=== PATIENT | female | born 1945 | race Caucasian/White ===

== ENCOUNTER → 2018-09-22 | Outpatient (CLI) | payer MEDICARE | END | disposition home or self-care (01) | LOC: RESCLI 10:19 | DX: E55.9 Vitamin D deficiency, unspecified (principal); E11.65 Type 2 diabetes mellitus with hyperglycemia; J30.2 Other seasonal allergic rhinitis; I25.10 Atherosclerotic heart disease of native coronary artery without angina pectoris; E03.9 Hypothyroidism, unspecified; E53.8 Deficiency of other specified B group vitamins; E78.5 Hyperlipidemia, unspecified; I10 Essential (primary) hypertension; Z79.4 Long term (current) use of insulin ==

== ENCOUNTER → 2019-01-07 | Outpatient (CLI) | payer MEDICARE | END | disposition home or self-care (01) | LOC: RESCLI 02:23 | DX: E55.9 Vitamin D deficiency, unspecified (principal); J30.2 Other seasonal allergic rhinitis; I25.10 Atherosclerotic heart disease of native coronary artery without angina pectoris; E03.9 Hypothyroidism, unspecified; E78.5 Hyperlipidemia, unspecified; I10 Essential (primary) hypertension; E11.65 Type 2 diabetes mellitus with hyperglycemia; E53.8 Deficiency of other specified B group vitamins; B35.9 Dermatophytosis, unspecified; Z79.899 Other long term (current) drug therapy; Z88.8 Allergy status to other drugs, medicaments and biological substances ==

== ENCOUNTER → 2019-02-09 | Outpatient (CLI) | payer MEDICARE ==
[2019-02-09 10:30] LABS: BASO # 0.1 10*3/uL (0.0-0.1); BASO % 0.7 % (0.0-1.0); EOS # 0.1 10*3/uL (0.0-0.4); EOS % 1.7 % (1.0-4.0); HEMATOCRIT 33.1 % (37.0-47.0); HEMOGLOBIN 11.2 g/dl (12.0-16.0); LYMPH # 2.7 10*3/uL (1.3-4.4); LYMPH % 31.7 % (27.0-41.0); MEAN CELL VOLUME 98.8 fl (81.0-99.0); MEAN CORPUSCULAR HGB 33.4 pg (27.0-31.0); MEAN CORPUSCULAR HGB CONC 33.8 g/dl (33.0-37.0); MEAN PLATELET VOLUME 9.3 fl (9.6-12.3); MONO # 0.4 10*3/uL (0.1-1.0); MONO % 5.1 % (3.0-9.0); NEUT # 5.1 10*3/uL (2.3-7.9); NEUT % 60.4 % (47.0-73.0); PLATELET COUNT AUTOMATED 213 10*3/uL (130-400); RED BLOOD COUNT 3.35 10*6/uL (4.10-5.10); RED CELL DISTRI WIDTH 12.3 % (0-14.5); WHITE BLOOD COUNT 8.4 10*3/uL (4.8-10.8)
[2019-02-09 11:39] LABS: VITAMIN D, 25-HYDROXY 24.5 ng/mL (30-100)
== END | disposition home or self-care (01) ==
LOC: RESCLI 02:16
PROVIDERS: Internal Medicine
DX: E55.9 Vitamin D deficiency, unspecified (principal); J30.2 Other seasonal allergic rhinitis; I25.10 Atherosclerotic heart disease of native coronary artery without angina pectoris; E03.9 Hypothyroidism, unspecified; E78.5 Hyperlipidemia, unspecified; I10 Essential (primary) hypertension; E11.65 Type 2 diabetes mellitus with hyperglycemia; E53.8 Deficiency of other specified B group vitamins; B35.9 Dermatophytosis, unspecified; Z79.899 Other long term (current) drug therapy; Z88.8 Allergy status to other drugs, medicaments and biological substances

== ENCOUNTER → 2020-05-14 | Outpatient (CLI) | payer MEDICARE | END | disposition home or self-care (01) | LOC: RESCLI 09:03 | PROVIDERS: ATTEND Internal Medicine Nephrology | DX: E11.65 Type 2 diabetes mellitus with hyperglycemia (principal); E55.9 Vitamin D deficiency, unspecified; I25.10 Atherosclerotic heart disease of native coronary artery without angina pectoris; E03.9 Hypothyroidism, unspecified; E78.5 Hyperlipidemia, unspecified; I10 Essential (primary) hypertension; E53.8 Deficiency of other specified B group vitamins; J30.2 Other seasonal allergic rhinitis; Z79.899 Other long term (current) drug therapy ==

== ENCOUNTER → 2020-07-26 | Outpatient (CLI) | payer MEDICARE ==
[2020-07-26 14:41] LABS: BASO % 0.4 % (0.0-1.0); EOS # 0.2 10*3/uL (0.0-0.4); EOS % 1.7 % (1.0-4.0); HEMATOCRIT 32.5 % (37.0-47.0); LYMPH # 2.4 10*3/uL (1.3-4.4); LYMPH % 24.5 % (27.0-41.0); MEAN CORPUSCULAR HGB 31.6 pg (27.0-31.0); MEAN CORPUSCULAR HGB CONC 33.2 g/dl (33.0-37.0); MEAN PLATELET VOLUME 9.1 fl (9.6-12.3); MONO # 0.7 10*3/uL (0.1-1.0); MONO % 7.4 % (3.0-9.0); NEUT # 6.3 10*3/uL (2.3-7.9); NEUT % 65.7 % (47.0-73.0); PLATELET COUNT AUTOMATED 217 10*3/uL (130-400); RED BLOOD COUNT 3.42 10*6/uL (4.10-5.10); RED CELL DISTRI WIDTH 12.4 % (0-14.5); WHITE BLOOD COUNT 9.6 10*3/uL (4.8-10.8)
[2020-07-26 14:53] LABS: ALBUMIN 3.5 gm/dl (3.1-4.5); CREATININE 1.56 mg/dL (0.55-1.02); POTASSIUM 4.4 mmol/L (3.5-5.1); TOTAL PROTEIN 7.1 gm/dL (6.4-8.2)
== END | disposition home or self-care (01) ==
LOC: RESCLI 01:19
PROVIDERS: Student in an Organized Health Care Education/Training Program; ATTEND Internal Medicine
DX: E11.65 Type 2 diabetes mellitus with hyperglycemia (principal); E03.9 Hypothyroidism, unspecified; E78.5 Hyperlipidemia, unspecified; I10 Essential (primary) hypertension; E55.9 Vitamin D deficiency, unspecified; J30.2 Other seasonal allergic rhinitis; I25.10 Atherosclerotic heart disease of native coronary artery without angina pectoris; Z53.20 Procedure and treatment not carried out because of patient's decision for unspecified reasons; Z79.82 Long term (current) use of aspirin

== ENCOUNTER → 2020-11-09 | Outpatient (CLI) | payer MEDICARE | END | disposition home or self-care (01) | LOC: RESCLI 02:28 | PROVIDERS: ATTEND Student in an Organized Health Care Education/Training Program | DX: J30.2 Other seasonal allergic rhinitis (principal); E11.65 Type 2 diabetes mellitus with hyperglycemia; I10 Essential (primary) hypertension; I25.10 Atherosclerotic heart disease of native coronary artery without angina pectoris; E53.8 Deficiency of other specified B group vitamins; E03.9 Hypothyroidism, unspecified; E78.5 Hyperlipidemia, unspecified; F32.9 Major depressive disorder, single episode, unspecified; E55.9 Vitamin D deficiency, unspecified; Z79.899 Other long term (current) drug therapy; Z90.49 Acquired absence of other specified parts of digestive tract; Z98.51 Tubal ligation status; Z98.890 Other specified postprocedural states ==

== ENCOUNTER → 2021-02-08 | Outpatient (CLI) | payer MEDICARE | END | disposition home or self-care (01) | LOC: RESCLI 02:42 | PROVIDERS: ATTEND Internal Medicine | DX: E11.65 Type 2 diabetes mellitus with hyperglycemia (principal); I10 Essential (primary) hypertension; J30.2 Other seasonal allergic rhinitis; I25.10 Atherosclerotic heart disease of native coronary artery without angina pectoris; E53.8 Deficiency of other specified B group vitamins; E03.9 Hypothyroidism, unspecified; E78.5 Hyperlipidemia, unspecified; E55.9 Vitamin D deficiency, unspecified; Z90.49 Acquired absence of other specified parts of digestive tract; Z79.899 Other long term (current) drug therapy; Z98.890 Other specified postprocedural states; Z79.82 Long term (current) use of aspirin ==

== ENCOUNTER → 2021-07-26 | Outpatient (CLI) | payer MEDICARE | END | disposition home or self-care (01) | LOC: RESCLI 03:48 | PROVIDERS: ATTEND Internal Medicine | DX: I25.10 Atherosclerotic heart disease of native coronary artery without angina pectoris (principal); E78.5 Hyperlipidemia, unspecified; E11.65 Type 2 diabetes mellitus with hyperglycemia; E55.9 Vitamin D deficiency, unspecified; E53.8 Deficiency of other specified B group vitamins; E03.9 Hypothyroidism, unspecified; Z79.899 Other long term (current) drug therapy; Z88.8 Allergy status to other drugs, medicaments and biological substances; Z79.82 Long term (current) use of aspirin ==

== ENCOUNTER 2022-12-07 05:15 | Emergency (ER) | payer MEDICARE ==
[2022-12-07 05:42] LABS: ACT PARTIAL THROMBO TIME 24.7 SECONDS (20.0-32.1)
[2022-12-07] MEDS ORDERED: APRESOLINE25 MG PO (05:47)
[2022-12-07] MEDS ORDERED: DULOXETINE HCL60 MG PO (05:47)
[2022-12-07 05:51] LABS: BILIRUBIN Negative (Negative); BLOOD Negative (Negative); CLARITY Clear (Clear); COLOR Yellow (Yellow); GLUCOSE 1+ (Negative); KETONE Negative (Negative); LEUKO ESTERASE Negative (Negative); NITRITE Negative (Negative); PH 5.5 (4.5-8.0); UROBILINOGEN 0.2 E.U./dl (0.0-1.0)
[2022-12-07 05:54] LABS: ALKALINE PHOSPHATASE 67 U/L (46-116); BUN 16 mg/dl (9-23); CHLORIDE 106 mmol/L (98-107); LIPASE 38 U/L (12-53); POTASSIUM 3.8 mmol/L (3.4-5.1); SGPT/ALT 25 U/L (10-49); TOTAL PROTEIN 7.1 gm/dL (6.0-8.0)
[2022-12-07 05:58] LABS: URINE AMPHETAMINES Negative (1000ng/ml); URINE BARBITURATES Negative (200ng/ml); URINE BENZODIAZEPINES Negative (200ng/ml); URINE CANNABINOIDS (THC) Negative (50ng/ml); URINE COCAINE Negative (300ng/ml); URINE METHADONE Negative (300ng/ml); URINE OPIATES Negative (300ng/ml); URINE PHENCYCLIDINE Negative (25ng/ml)
[2022-12-07 06:04] LABS: BASO # 0.1 10*3/uL (0.0-0.1); BASO % 0.7 % (0.0-1.0); EOS # 0.2 10*3/uL (0.0-0.4); EOS % 1.8 % (1.0-4.0); HEMATOCRIT 30.3 % (37.0-47.0); LYMPH # 3.5 10*3/uL (1.3-4.4); LYMPH % 42.2 % (27.0-41.0); MEAN CELL VOLUME 95.3 fl (81.0-99.0); MEAN CORPUSCULAR HGB 31.4 pg (27.0-31.0); MEAN PLATELET VOLUME 8.9 fl (9.6-12.3); MONO # 0.6 10*3/uL (0.1-1.0); MONO % 7.1 % (3.0-9.0); NEUT # 3.9 10*3/uL (2.3-7.9); PLATELET COUNT AUTOMATED 238 10*3/uL (130-400); RED BLOOD COUNT 3.18 10*6/uL (4.10-5.10); RED CELL DISTRI WIDTH 12.4 % (0-14.5); WHITE BLOOD COUNT 8.2 10*3/uL (4.8-10.8)
[2022-12-07 06:06] LABS: BACTERIA 2+
[2022-12-07 06:07] LABS: ETHYL ALCOHOL < 3.0 mg/dl (<3)
[2022-12-07] MEDS ORDERED: Synthroid,Levo25 MCG PO (06:39)
[2022-12-07] MEDS ORDERED: Lopressor25 MG PO (06:39)
[2022-12-07] MEDS ORDERED: ROSUVASTATIN CA40 MG PO (06:39)
[2022-12-07] MEDS ORDERED: DONEPEZIL HYDROC5 MG PO (06:39)
[2022-12-07] MEDS ORDERED: ASPIRIN81 M1 PO (06:40)
[2022-12-07] MEDS ORDERED: LANTUS SOL100 UNIT/1 SC (06:40)
[2022-12-07] MEDS ORDERED: SENTRY SENIOR1 EAC2 PO (06:41)
[2022-12-07] MEDS ORDERED: CIPRO500 MG PO (06:45)
== END 2022-12-07 08:30 | disposition home or self-care (01) ==
LOC: ED 05:15
PROVIDERS: Internal Medicine
DX: N39.0 Urinary tract infection, site not specified (principal); E11.9 Type 2 diabetes mellitus without complications; Z90.89 Acquired absence of other organs; Z90.710 Acquired absence of both cervix and uterus; Z90.49 Acquired absence of other specified parts of digestive tract; Z98.890 Other specified postprocedural states